=== PATIENT | male | born 1955 | race African-American/Black ===

== ENCOUNTER 2017-10-08 18:38 | Inpatient (IN) | payer BC ==
[~2017-10-08] VITALS: Ht 180.3 cm; Wt 94.3 kg
--- NOTE | ~2017-10-08 | EKG ---
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 : 1955 Requested By: Angela Gonzales Order Number: [id number] MD: Igor Mccloud Measurements Intervals [place] Rate: 134 P: 18 AK: 136 QRS: 136 QRSD: 74 T: 3 QT: 277 QTc: 414 Interpretive Statements Sinus tachycardia Left posterior fascicular block Abnormal R-wave progression, late transition No previous ECG available for comparison Electronically Signed On 10-09-2017 8:15:36 CDT by Igor Mccloud [email or web address] <ELECTRONICALLY SIGNED> By: Igor Mccloud MD, [facility] 10/09/17 0815 11 11 Igor Mccloud MD, FACC /EPI
[2017-10-08 19:02] VITALS: BP 126/96
[2017-10-08] MEDS ORDERED: OMEPRAZOLE40 MG PO (20:21)
[2017-10-08] MEDS ORDERED: NEURONTIN 300M300 M2 PO (20:21)
[2017-10-08] MEDS ORDERED: FOLIC ACID1 MG PO (20:22)
[2017-10-08 20:23] LABS: HEMOGLOBIN 16.6 gm/dL (14.0-18.0); MCH 31.2 pg (26.0-34.0); MCHC 35.2 g/dL (28.0-37.0); MCV 88.5 fL (80.0-100.0); PLATELET COUNT 306 thou/uL (150-400); RBC 5.31 mil/uL (4.50-6.00); RDW 14.2 % (10.5-14.5); WBC 20.7 thou/uL (4.0-11.0)
[2017-10-08 20:32] LABS: CALCIUM 9.6 mg/dL (8.5-10.1); POTASSIUM 4.2 mmol/L (3.5-5.1)
[2017-10-08 20:43] LABS: ABSOLUTE NEUTROPHILS 14.9 thou/uL (1.4-8.2)
[2017-10-08 20:48] LABS: ALBUMIN 3.2 g/dL (3.4-5.0); TOTAL PROTEIN 7.9 g/dL (6.4-8.2)
[2017-10-08 21:02] LABS: SALICYLATE 4.9 mg/dL (2.8-20.0)
[2017-10-08 21:19] LABS: URINE BILIRUBIN NEGATIVE (Negative); URINE BLOOD TRACE (Negative); URINE CLARITY CLEAR; URINE COLOR YELLOW; URINE GLUCOSE-RANDOM* NEGATIVE (Negative); URINE KETONES 1+ (Negative); URINE LEUKOCYTES NEGATIVE (Negative); URINE NITRITE NEGATIVE (Negative); URINE PROTEIN (DIPSTICK) TRACE (Negative); URINE SPECIFIC GRAVITY 1.015 (1.005-1.035)
[2017-10-08 22:25] VITALS: BP 158/95
[2017-10-08 23:34] VITALS: BP 137/81
[2017-10-09 05:30] VITALS: BP 145/99
[2017-10-09 06:40] LABS: CALCIUM 8.9 mg/dL (8.5-10.1); CREATININE 0.9 mg/dL (0.7-1.3); POTASSIUM 4.3 mmol/L (3.5-5.1); URIC ACID* 3.8 mg/dL (2.6-7.2)
[2017-10-09 07:18] VITALS: BP 146/97
[2017-10-09 09:00] VITALS: BP 146/97
[2017-10-09 12:09] VITALS: BP 141/96
[2017-10-09 20:12] VITALS: BP 139/96
[2017-10-10 07:25] LABS: MCH 30.3 pg (26.0-34.0); MCHC 34.7 g/dL (28.0-37.0); MCV 87.4 fL (80.0-100.0); RBC 4.81 mil/uL (4.50-6.00); RDW 14.3 % (10.5-14.5); WBC 29.4 thou/uL (4.0-11.0)
[2017-10-10 07:26] LABS: HEMOGLOBIN 14.6 gm/dL (14.0-18.0)
[2017-10-10 07:30] VITALS: BP 149/104
[2017-10-10] MEDS ORDERED: HYDROCODON-ACE1 EAC7 PO (08:48)
[2017-10-10] MEDS ORDERED: PREDNISONE 20 M20 M1 PO (08:49)
[2017-10-10 12:04] VITALS: BP 149/104
== END 2017-10-10 14:18 | disposition home or self-care (01) | DRG 546 ==
LOC: ER 18:38 → SICU 21:42 → EROBS 21:42 → 4E 21:42 → SICU 10-09 12:24 → ENTRNSPT 10-10 14:04 → EDTRNSPTSTS 10-10 14:08 → SICU 10-10 14:18
PROVIDERS: Hospitalist; Nurse Practitioner Family; Physician Assistant
DX: M06.9 Rheumatoid arthritis, unspecified (principal); R65.10 Systemic inflammatory response syndrome (SIRS) of non-infectious origin without acute organ dysfunction; G35 Multiple sclerosis; K21.9 Gastro-esophageal reflux disease without esophagitis; Z85.038 Personal history of other malignant neoplasm of large intestine; Z92.21 Personal history of antineoplastic chemotherapy; Z92.3 Personal history of irradiation; Z79.899 Other long term (current) drug therapy
CPT/HCPCS: 10084; 15000

== ENCOUNTER 2017-12-07 11:58 | Emergency (ER) | payer BC ==
[~2017-12-07] VITALS: Ht 177.8 cm; Wt 95.3 kg
--- NOTE | ~2017-12-07 | EKG ---
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
[~2017-12-07 11:58] MED LIST: FOLIC ACID1 MG PO; HYDROCODON-ACE1 EAC7 PO; NEURONTIN 300M300 M2 PO; OMEPRAZOLE40 MG PO; PREDNISONE 20 M20 M1 PO
[2017-12-07] MEDS ORDERED: XELJANZ XR11 MG PO (12:28)
[2017-12-07 15:16] LABS: CALCIUM 9.7 mg/dL (8.5-10.1); CREATININE 1.1 mg/dL (0.7-1.3)
[2017-12-07 15:37] LABS: HEMATOCRIT 40.1 % (42.0-52.0); HEMOGLOBIN 13.9 gm/dL (14.0-18.0); MCH 30.8 pg (26.0-34.0); MCHC 34.6 g/dL (28.0-37.0); MCV 88.8 fL (80.0-100.0); PLATELET COUNT 227 thou/uL (150-400); RBC 4.51 mil/uL (4.50-6.00); RDW 14.9 % (10.5-14.5); WBC 27.1 thou/uL (4.0-11.0)
[2017-12-07 16:03] LABS: ABSOLUTE NEUTROPHILS 22.2 thou/uL (1.4-8.2)
[2017-12-07 16:04] LABS: ANISOCYTOSIS 1+; TARGET CELLS OCCASIONAL
[2017-12-07] MEDS ORDERED: SENNA-DOCUSATE1 EACH PO (16:13)
[2017-12-07] MEDS ORDERED: NORCO 5-325 TA1 EACH PO (16:13)
== END 2017-12-07 16:42 | disposition home or self-care (01) ==
LOC: ER 11:58
PROVIDERS: Emergency Medicine
DX: M06.852 Other specified rheumatoid arthritis, left hip (principal)

== ENCOUNTER 2018-09-29 23:07 | Emergency (ER) | payer BC ==
[~2018-09-29] VITALS: Ht 177.8 cm; Wt 93.0 kg
[~2018-09-29 23:07] MED LIST changes: +NORCO 5-325 TA1 EACH PO; +SENNA-DOCUSATE1 EACH PO; +XELJANZ XR11 MG PO
[2018-09-30 02:14] VITALS: BP 156/101
== END 2018-09-30 02:15 | disposition home or self-care (01) ==
LOC: ER 23:07
DX: M25.552 Pain in left hip (principal); M25.551 Pain in right hip; R00.0 Tachycardia, unspecified; M06.9 Rheumatoid arthritis, unspecified; Z85.038 Personal history of other malignant neoplasm of large intestine